=== PATIENT | male | born 1990 | race American Indian/Alaskan Native ===

== ENCOUNTER 2020-02-27 02:11 | Emergency (ER) | payer SELFPAY ==
--- NOTE | 2020-02-27 03:14 | XRay Report ---
XR hand 3+V RT INDICATION: injury. Punched a wall COMPARISON: No relevant prior imaging study available. FINDINGS: On the first image there is subtle cortical irregularity at the base of the ring finger metacarpal. T his is not seen on additional images. Bones are otherwise unremarkable. There is mild soft tissue swelling along the ulnar aspect of the hand. IMPRESSION: 1. Subtle cortical irregularity at the base of the ring finger metacarpal seen only on one image. Thi s could be an artifact related to overlapping bone. Correlate with point tenderness. Signer Name: Edmond Murrieta MD Signed: 02/27/2020 3:09 AM Workstation Name: [id number]
[2020-02-27] MEDS ORDERED: ONDANSETRON 4 MG ODT TAB PO ONE (03:59)
[2020-02-27] MEDS ORDERED: HYDROcodone/ACETAMINOPHEN 5-325 MG TAB PO ONE (03:59)
[2020-02-27] MEDS ORDERED: IBUPROFEN 600 MG TAB PO ONE (03:59)
--- NOTE | 2020-02-27 04:51 | Emergency Department Report ---
ED Upper Extremity Inj HPI - General Chief Complaint: Extremity Injury, Lower Stated Complaint: RIGHT SMALL FINGER PAIN/SWELLING Source: patient Mode of arrival: Ambulatory Limitations: No Limitations - History of Present Illness Initial Comments: Patient is a 29-year-old -[place] male with no past medical history presents to the ED with complaint of acute onset persistent severe lateral right hand pain with mild swelling after he punched a wall in anger 4 days ago. Patient states that initially the pain and the swelling are worse and although the swelling has improved significantly in the last 2 days, the pain has been persistent and worse with any active range of motion of the right hand. Patient denies dizziness, syncope, nausea, vomiting, numbness and tingling or weakness of right hand or wrist. MD Complaint: Injury to:: right, hand (pain) -: Sudden, days(s) (4) Other Extremity Injury: Hand: Right (Right lateral hand and small finger pain and swelling) Handedness: right Place: home Severity scale (0 -10): 6 Improves With: rest Worsens With: movement of extremity Context: direct blow (Punched a wall in anger), crush (Punched a wall in anger), injury (Punched a wall in anger) Associated Symptoms: denies other symptoms. denies: weakness, numbness, neck pain, suspects foreign body, nausea/vomiting, heard/felt popping sensat - Related Data Previous Rx's Medication Instructions Recorded Last Taken Type Ibuprofen [Motrin] 600 mg PO Q8H PRN #30 tablet 02/27/20 Unknown Rx Allergies Allergy/AdvReac Type Severity Reaction Status Date / Time No Known Allergies Allergy Unverified 02/27/20 02:17 ED Review of Systems ROS: Stated complaint: RIGHT SMALL FINGER PAIN/SWELLING Other details as noted in HPI Constitutional: denies: chills, fever Eyes: denies: eye pain, eye discharge, vision change ENT: denies: ear pain, throat pain Respiratory: denies: cough, shortness of breath, wheezing Cardiovascular: denies: chest pain, palpitations Endocrine: no symptoms reported Gastrointestinal: denies: abdominal pain, nausea, diarrhea Genitourinary: denies: urgency, dysuria Musculoskeletal: joint swelling (right lateral hand ), arthralgia (right lateral hand pain and mild swelling), myalgia. denies: back pain Skin: denies: rash, lesions Neurological: denies: headache, weakness, paresthesias Psychiatric: denies: anxiety, depression Hematological/Lymphatic: denies: easy bleeding, easy bruising ED Past Medical Hx - Past Medical History Previous Medical History?: No - Surgical History Past Surgical History?: No - Social History Smoking Status: Never Smoker Substance Use Type: None - Medications Home Medications: Home Medications Medication Instructions Recorded Confirmed Last Taken Type Ibuprofen [Motrin] 600 mg PO Q8H PRN #30 tablet 02/27/20 Unknown Rx ED Physical Exam - General Limitations: No Limitations General appearance: alert, in no apparent distress - Head Head exam: Present: atraumatic, normocephalic, normal inspection - Eye Eye exam: Present: normal appearance, PERRL, EOMI Pupils: Present: normal accommodation - ENT ENT exam: Present: normal exam, normal orophraynx, mucous membranes moist, TM's normal bilaterally, normal external ear exam - Neck Neck exam: Present: normal inspection, full ROM - Respiratory Respiratory exam: Present: normal lung sounds bilaterally. Absent: respiratory distress, wheezes, rales, stridor, chest wall tenderness, accessory muscle use, decreased breath sounds, prolonged expiratory - Cardiovascular Cardiovascular Exam: Present: regular rate, normal rhythm, normal heart sounds. Absent: systolic murmur, diastolic murmur, rubs, gallop - GI/Abdominal GI/Abdominal exam: Present: soft, normal bowel sounds. Absent: tenderness, guarding, rebound, hyperactive bowel sounds, hypoactive bowel sounds - Extremities Exam Extremities exam: Present: normal inspection, tenderness (Palpable right lateral hand tenderness with mild swelling and limited range of motion due to pain), normal capillary refill, joint swelling (Mildly swollen right lateral hand). Absent: full ROM (Limited range of motion of lateral right hand due to pain), pedal edema, calf tenderness - Back Exam Back exam: Present: normal inspection, full ROM. Absent: tenderness, CVA tenderness (R), CVA tenderness (L), muscle spasm, paraspinal tenderness, vertebral tenderness, rash noted - Neurological Exam Neurological exam: Present: alert, oriented X3, CN II-XII intact, normal gait, reflexes normal - Psychiatric Psychiatric exam: Present: normal affect, normal mood - Skin Skin exam: Present: warm, dry, intact, normal color. Absent: rash ED Medical Decision Making - Radiology Data Radiology results: report reviewed, image reviewed Findings [facility] [address] [place] [address] XRay Report Signed Patient: ELMO DEGROOT III MR#: [id number] : 1990 Acct:[id number] Age/Sex: 29 / M ADM Date: 02/27/20 Loc: ED Attending Dr: Ordering Physician: JEFFRY SORENSEN MD Date of Service: 02/27/20 Procedure(s): XR hand 3+V RT Accession Number(s): [id number] cc: JEFFRY SORENSEN MD Fluoro Time In Minutes: XR hand 3+V RT INDICATION: injury. Punched a wall COMPARISON: No relevant prior imaging study available. FINDINGS: On the first image there is subtle cortical irregularity at the base of the ring finger metacarpal. This is not seen on additional images. Bones are otherwise unremarkable. There is mild soft tissue swelling along the ulnar aspect of the hand. IMPRESSION: 1. Subtle cortical irregularity at the base of the ring finger metacarpal seen only on one image. This could be an artifact related to overlapping bone. Correlate with point tenderness. Signer Name: Edmond Murrieta MD Signed: 02/27/2020 3:09 AM Workstation Name: [id number] Transcribed By: Dictated By: Edmond Murrieta MD Electronically Authenticated By: Edmond Murrieta MD Signed Date/Time: 02/27/20308 DD/ 6 TD/TT: - Medical Decision Making This is a 29-year-old -[place] male with no past medical history presents to the ED with complaint of acute onset persistent severe lateral right hand pain with mild swelling after he punched a wall in anger 4 days ago. Patient states that initially the pain and the swelling are worse and although the swelling has improved significantly in the last 2 days, the pain has been persistent and worse with any active range of motion of the right hand. In the ED, patient is alert and oriented x3 and is not in distress. Patient was treated for pain in the ED, and right hand x-ray showed subtle cortical irregularity at the base of the ring finger metacarpal seen only on one image. This could be an artifact related to overlapping bone. Correlate with point tenderness. Based on the physical exam findings, the point tenderness is on the distal right fifth metacarpal. The patient was treated for pain in the ED and the right hand was splinted with ulnar gutter splint, the patient was discharged home on pain medications and given a referral to the orthopedic surgeon on-call Dr. Wilson for follow-up and further evaluation. Patient was advised to contact Dr. Wilson's office first thing in the morning on February 27, 2020 to schedule a follow-up appointment. Patient was advised to return to the ED immediately if symptoms get worse. - Differential Diagnosis Hand fracture; finger fracture; hand contusion; hand sprain; finger sprain Critical care attestation.: If time is entered above; I have spent that time in minutes in the direct care of this critically ill patient, excluding procedure time. ED Disposition Clinical Impression: Sprain of right hand Qualifiers: Encounter type: initial encounter Qualified Code(s): S63.91XA - Sprain of unspecified part of right wrist and hand, initial encounter Contusion of right hand including fingers Qualifiers: Encounter type: initial encounter Qualified Code(s): S60.221A - Contusion of right hand, initial encounter; S60.00XA - Contusion of unspecified finger without damage to nail, initial encounter Disposition: DC-01 TO HOME OR SELFCARE Is pt being admited?: No Does the pt Need Aspirin: No Condition: Stable Instructions: Hand Sprain (ED), Contusion in Adults (ED) Additional Instructions: The right hand x-ray shows no acute fractures or subluxations. The ligament injuries cannot be ruled out with the x-ray. Take medications with food, drink plenty of fluids and follow-up with the orthopedic surgeon Dr. Wilson as advised. Contact Dr. Wilson's office first thing this morning February 27, 2020 to schedule a follow-up appointment. Return to the ED immediately if symptoms get worse. Prescriptions: Ibuprofen [Motrin] 600 mg PO Q8H PRN #30 tablet PRN Reason: Pain Referrals: ALESHA WILSON MD [Staff Physician] - [place] Forms: Work/School Release Form(ED) Time of Disposition: 04:48 Print Language: GEORGIAN
[2020-02-27 07:24] VITALS: BP 118/72
== END 2020-02-27 05:30 | disposition home or self-care (01) ==
LOC: ED 02:11
DX: S63.91XA Sprain of unspecified part of right wrist and hand, initial encounter (principal); S60.00XA Contusion of unspecified finger without damage to nail, initial encounter; W22.8XXA Striking against or struck by other objects, initial encounter; Y93.89 Activity, other specified; Y92.89 Other specified places as the place of occurrence of the external cause; Y99.8 Other external cause status
CPT/HCPCS: Q0162